=== PATIENT | female | born 1930 | race Caucasian/White ===

== ENCOUNTER 2016-11-07 16:36 | Emergency (ER) | payer MEDICARE ==
[~2016-11-07] VITALS: Ht 144.8 cm; Wt 51.3 kg
[~2016-11-07 16:36] MED LIST: ATOR80TA; AZIT-21 PO; BNZ20T; CLN.1T; CLOP75TA; ESCT10T; GUAI120S36 PO; ISM30TCR; LISI-596 PO; LVT.05T; MTP25TSR; MTP50T; OLME40TA14; PRD20T; RANO500T2
[2016-11-07] MEDS ORDERED: TETANUS,DIPTH,PERTUSS P/F (BOOSTRIX) 0.5 ML VIAL IM STA (16:41)
--- NOTE | 2016-11-07 16:49 | ED Fall/Injury ---
General Chief Complaint: Trauma-Non Activation Stated Complaint: FALL/HEAD PAIN Source: patient, family, EMS Exam Limitations: no limitations (KILO DIAS MD) History of Present Illness Time seen by provider: 16:40 Initial Comments Here with report of tripping and falling to the ground and hitting her right forehead and cheek area. No loss of consciousness. Trip was mechanical. Also hit her left knee but denies any significant pain there. She is not on blood thinners. Tetanus is just out of date. Denies nausea or vomiting. Otherwise acting okay with mild headache. Occurred: just prior to arrival (30 minutes ago) Severity: moderate Injuries/Pain Location: head, face Context: tripped Loss of Consciousness: no loss of consciousness Associated Symptoms (Fall): No Abdominal Pain, No Chest Pain, Headache, No Nausea/Vomiting, No Shortness of Air, No Vision Changes (KILO DIAS MD) Allergies and Home Medications Allergies Coded Allergies: No Known Drug Allergies (Unverified , 11/07/16) Home Medications Amlodipine Besylate 5 Mg Tablet, 5 MG PO DAILY, #30 Ref 0 Prescribed by: ROMEL DIAZ on 11/07/161949 Constitutional: see HPI, No chills, No fever Eyes: No Symptoms Reported Ears, Nose, Mouth, Throat: no symptoms reported Respiratory: no symptoms reported Cardiovascular: no symptoms reported Gastrointestinal: no symptoms reported Musculoskeletal: see HPI, joint pain Skin: see HPI, lesions Psychiatric/Neurological: Headache, Denies Weakness (KILO DIAS MD) All Other Systems Reviewed Negative Unless Noted: Yes (KILO DIAS MD) Past Bzegdes-Egycbu-Rmkfga Hx Patient Social History Alcohol Use: Denies Use Smoking Status: Never a Smoker (KILO DIAS MD) Surgeries HX Surgeries: Yes (KIDNEY STONE REMOVAL-1982, GALL BLADDER-1975) (KILO DIAS MD) Respiratory Hx Respiratory Disorders: No (KILO DIAS MD) Cardiovascular Hx Cardiac Disorders: Yes (KILO DIAS MD) Neurological Hx Neurological Disorders: Yes (KILO DIAS MD) Reproductive System Hx Reproductive Disorders: No (KILO DIAS MD) Gastrointestinal Hx Gastrointestinal Disorders: Yes (KILO DIAS MD) Musculoskeletal Hx Musculoskeletal Disorders: Yes (KILO DIAS MD) Endocrine Hx Endocrine Disorders: Yes (KILO DIAS MD) HEENT HX ENT Disorders: No (KILO DIAS MD) Psychosocial Hx Psychiatric Problems: No (KILO DIAS MD) Blood Transfusions Hx Blood Disorders: No (KILO DIAS MD) Reviewed Nursing Assessment Reviewed/Agree w Nursing PMH: Yes (KILO DIAS MD) Family Medical History Significant Family History: No Pertinent Family Hx (KILO DIAS MD) Physical Exam Vital Signs Vital Sign - Last 12Hours 11/07/16 16:40 Temp 98.0 Pulse 105 Resp 18 B/P (MAP) 213/113 Pulse Ox 96 O2 Delivery Room Air (ROMEL DIAZ) Vital Signs Capillary Refill : (KILO DIAS MD) General Appearance: WD/WN, no apparent distress HEENT: PERRL/EOMI, pharynx normal Neck: full range of motion, supple, normal inspection Cardiovascular: regular rate, rhythm, no murmur Respiratory: lungs clear, normal breath sounds Gastrointestinal: non tender, soft Back: normal inspection, no CVA tenderness, no vertebral tenderness Extremities: non-tender, normal inspection Neurologic/Psychiatric: alert, oriented x 3 Skin: warm/dry, ecchymosis, other (abrasion 2 x 2 centimeter to right forehead with 1 x 1 cm abrasion to the right cheek. Surrounding ecchymosis noted.) ( KILO DIAS MD) Progress/Results/Core Measures Results/Orders Lab Results Laboratory Tests Test 11/07/16 19:01 Range/Units White Blood Count 4.6 4.3-11.0 10^3/uL Red Blood Count 4.78 4.35-5.85 10^6/uL Hemoglobin 14.6 11.5-16.0 G/DL Hematocrit 43 35-52 % Mean Corpuscular Volume 90 80-99 FL Mean Corpuscular Hemoglobin 31 25-34 PG Mean Corpuscular Hemoglobin Concent 34 32-36 G/DL Red Cell Distribution Width 12.8 10.0-14.5 % Platelet Count 152 130-400 10^3/uL Mean Platelet Volume 9.7 7.4-10.4 FL Neutrophils (%) (Auto) 58 42-75 % Lymphocytes (%) (Auto) 28 12-44 % Monocytes (%) (Auto) 10 0-12 % Eosinophils (%) (Auto) 3 0-10 % Basophils (%) (Auto) 1 0-10 % Neutrophils # (Auto) 2.7 1.8-7.8 X 10^3 Lymphocytes # (Auto) 1.3 1.0-4.0 X 10^3 Monocytes # (Auto) 0.5 0.0-1.0 X 10^3 Eosinophils # (Auto) 0.1 0.0-0.3 10^3/uL Basophils # (Auto) 0.0 0.0-0.1 10^3/uL Sodium Level 138 135-145 MMOL/L Potassium Level 4.6 3.6-5.0 MMOL/L Chloride Level 104 98-107 MMOL/L Carbon Dioxide Level 23 21-32 MMOL/L Anion Gap 11 5-14 MMOL/L Blood Urea Nitrogen 30 H 7-18 MG/DL Creatinine 0.81 0.60-1.30 MG/DL Estimat Glomerular Filtration Rate > 60 BUN/Creatinine Ratio 37 Glucose Level 93 70-105 MG/DL Calcium Level 9.8 8.5-10.1 MG/DL Total Bilirubin 0.9 0.1-1.0 MG/DL Aspartate Amino Transf (AST/SGOT) 24 5-34 U/L Alanine Aminotransferase (ALT/SGPT) 15 0-55 U/L Alkaline Phosphatase 61 40-136 U/L Total Protein 7.7 6.4-8.2 GM/DL Albumin 4.0 3.2-4.5 GM/DL (ROMEL DIAZ) My Orders Orders - ROMEL DIAZ Ct Head/Cervical Spine Wo (11/07/16 16:41) Dipht,Pertuss(Acell),Tet Adult (Boostrix (11/07/16 16:41) Fentanyl Injection (Sublimaze Injection (11/07/16 16:55) Ct Chest Wo (11/07/16 17:04) Cbc With Automated Diff (11/07/16 18:42) Comprehensive Metabolic Panel (11/07/16 18:42) Amlodipine Tablet (Norvasc Tablet) (11/07/16 18:45) Amlodipine Tablet (Norvasc Tablet) (11/07/16 20:15) (ROMEL DIAZ) Medications Given in ED Current Medications Medications Dose Ordered Sig/Dylan Route Start Time Stop Time Status Last Admin Dose Admin Amlodipine Besylate 5 mg ONCE ONCE PO 11/07/16 18:45 11/07/16 18:46 DC 11/07/16 18:47 5 MG Amlodipine Besylate 5 mg ONCE ONCE PO 11/07/16 20:15 11/07/16 20:16 DC 11/07/16 20:21 5 MG (ROMEL DIAZ) Vital Signs/I&O Vital Sign - Last 12Hours 11/07/16 16:40 Temp 98.0 Pulse 105 Resp 18 B/P (MAP) 213/113 Pulse Ox 96 O2 Delivery Room Air (ROMEL DIAZ) Progress Note : Progress Note Seen and evaluated with ROSSY Naylor. CT head and neck ordered. Tetanus updated. Monitor patient. (KILO DIAS MD) Diagnostic Imaging Diagonstic Imaging: CT Plain Films/CT/US/NM/MRI: c-spine, head Comments FINDINGS: Large round calcification is again identified associated with the calvarium overlying the left frontal lobe, medially. This is not significantly changed since 2008. This is felt to relate to a calcified meningioma. Additional calcification is seen along the interhemispheric falx on the right overlying the right frontal lobe, which is also stable from the prior examination. Metallic density is noted within the region of the suprasellar cistern. 1.5 cm hypodensity within the left basal ganglia is again identified, appearing similar to the prior examination. No intracranial hemorrhage. No additional new intracranial mass. Rightward shift of the anterior interhemispheric falx is again identified, superiorly, secondary to the large calcified meningioma. However, this appears unchanged since 2008. Additionally, there is no evidence of adjacent edema. No definite CT evidence of an acute ischemic infarction. The globes are intact. Soft tissue swelling involving the right frontal scalp. The visualized paranasal sinuses are clear. The calvarium is intact. Straightening of the normal cervical lordosis. Alignment of the atlantooccipital joint is well maintained. No significant anterolisthesis or retrolisthesis. Besides endplate degenerative changes, vertebral body heights are well-maintained. Moderate disc space height loss at C3/C4, C5/C6, C6/C7, C7/ T1 and T1/T2. No acute fracture or dislocation. No destructive osseous process. Scattered facet joint degenerative changes and uncovertebral joint hypertrophy are noted. There is resulting multilevel mild bilateral neuroforaminal stenosis. No severe neuroforaminal stenosis. Prominent disc bulge/protrusion at C4/C5. Scattered vascular calcifications. Pulmonary nodule seen within the left upper lobe. Opacification of the visualized right upper lung is noted. IMPRESSION: 1. No acute intracranial abnormality. 2. No acute osseous abnormality within the cervical spine with multilevel degenerative changes, as above. 3. Multiple left-sided pulmonary nodules with opacification of the right lung apex. Recommend referencing the report from the CT of the chest from same day for complete findings within the chest, itself. 4. Large left frontal calcified meningioma with associated mass effect, not significantly changed since 2008. 5. Additional findings as above. Dictated on workstation # [id number] Reviewed: Reviewed by Me (radiology report reviewed by me.) Diagonstic Imaging: CT Plain Films/CT/US/NM/MRI: chest Comments FINDINGS: Bilateral breast masses are again identified. These appear to have slightly increased in size since the prior examination. Additionally, extensive right axillary adenopathy is also identified. Scattered vascular calcifications without aneurysmal dilatation of the thoracic aorta. Large right pleural effusion is identified. This is associated with near-complete collapse of the right lung, though portions of the right upper lobe remain aerated. Innumerable pulmonary nodules are identified throughout the lungs, bilaterally. These appear slightly more prominent. In particular, the pulmonary nodule within the lingula did measure 0.9 cm and now measures 1.2 cm. No left-sided pleural effusion. No pneumothorax. No pericardial effusion. Lobulated contour of the liver is noted. Hypodensity within the right hepatic lobe is again identified, appearing similar to the prior examination. Recanalization of the umbilical vein is noted. Otherwise, minimally visualized upper abdomen is unremarkable. Osseous structures demonstrate multiple mixed sclerotic and lucent lesions throughout the spine and ribs. No acute osseous abnormality identified. IMPRESSION: 1. Findings consistent with extensive metastatic disease, having slightly progressed since the prior examination. 2. Large right-sided pleural effusion with near complete collapse of the right lung. 3. Additional findings as above. Dictated on workstation # [id number] Reviewed: Reviewed by Me (radiology report reviewed by me.) (ROMEL DIAZ) Departure Communication Progress Notes patient seen and evaluated with Dr. Dias. CT head/neck obtained showing opacification of the rt lung apex; therefore, CT chest was obtained. Findings are of metastatic breast cancer (increased in size since CT angio chest from 2015) and a calcified meningioma (similar to previous CT head from 2008). Patient voices that she is aware of these findings. Patient states she opted to "live her life" instead of have treatment for the breast cancer. Patient reports she is only SOA with strenuous activity, but is able to do the activities she wishes to do. Patient advised to f/u with Dr. Marquez and Dr. Marsh for discussion of possible need for palliative thoracentesis, hospice, recheck of BP, etc... Patient states she was given a Rx for pain medication previously, but denies need at this time. Patient is noted to have continued BP of 190/100 mmHg after 5 mg of amlodipine in the ED. Amlodipine repeated x1. Patient to f/u with Dr. Marquez for this. All return precautions were discussed with the patient and family. all voice understanding and agree with the treatment plan. (ROMEL DIAZ) Impression Impression: Primary Impression: Minor head injury without loss of consciousness Qualified Codes: S09.90XA - Unspecified injury of head, initial encounter Additional Impressions: Abrasion of face Qualified Codes: S00.81XA - Abrasion of other part of head, initial encounter Hypertension Qualified Codes: I10 - Essential (primary) hypertension History of meningioma of the brain Hx of malignant neoplasm of female breast Pleural effusion on right Disposition: 01 HOME, SELF-CARE Condition: Improved Departure-Patient Inst. Referrals: LAURA MARSH DANIEL J MD (PCP/Family) Primary Care Physician Patient Instructions: Minor Head Injury (DC), Pleural Effusion (DC), Skin Abrasions (DC) Add. Discharge Instructions: All discharge instructions reviewed with patient and/or family. Voiced understanding. Medications as instructed. Tylenol Extra Strength over-the- counter as directed for pain. Ice pack for 20 minute intervals as needed for pain. Tomorrow morning you may begin showering with antibacterial soap. Apply triple antibiotic ointment twice daily to the abrasions for 3 days. Follow-up with Dr. Marsh and Dr. Marquez as an outpatient in the next 7 days for recheck and discussion of possible need for draining of the rt lung fluid. Return to the emergency department immediately for worsened pain, changes in behavior, headache, dizziness, changes in vision, slurred speech, numbness, weakness, neck pain, back pain, shortness of air, chest pain, vomiting, or any other concerns. Scripts Amlodipine Besylate (Amlodipine Besylate) 5 Mg Tablet 5 MG PO DAILY, #30 TAB 0 Refills Prov: ROMEL DIAZ 11/07/16 Copy Copies To 1: LAURA MARSH DO Copies To 2: IVELISSE MARQUEZ MD, TIMOTHY D MD Nov 07, 2016 16:49 ROMEL DIAZ Nov 07, 2016 19:12
[2016-11-07] MEDS ORDERED: fentaNYL INJECTION 100 MCG/2 ML AMP IVP STA (16:55)
--- NOTE | 2016-11-07 17:28 | Diagnostic Imaging Report ---
PROCEDURE: CT head and CT cervical spine without contrast. TECHNIQUE: Multiple contiguous axial images were obtained through the brain and cervical spine without the use of intravenous contrast. Sagittal and coronal reformations through the cervical spine were then performed. INDICATION: Fall, laceration. COMPARISON: January 26, 2009. FINDINGS: Large round calcification is again identified associated with the calvarium overlying the left frontal lobe, medially. This is not significantly changed since 2008. This is felt to relate to a calcified meningioma. Additional calcification is seen along the interhemispheric falx on the right overlying the right frontal lobe, which is also stable from the prior examination. Metallic density is noted within the region of the suprasellar cistern. 1.5 cm hypodensity within the left basal ganglia is again identified, appearing similar to the prior examination. No intracranial hemorrhage. No additional new intracranial mass. Rightward shift of the anterior interhemispheric falx is again identified, superiorly, secondary to the large calcified meningioma. However, this appears unchanged since 2008. Additionally, there is no evidence of adjacent edema. No definite CT evidence of an acute ischemic infarction. The globes are intact. Soft tissue swelling involving the right frontal scalp. The visualized paranasal sinuses are clear. The calvarium is intact. Straightening of the normal cervical lordosis. Alignment of the atlantooccipital joint is well maintained. No significant anterolisthesis or retrolisthesis. Besides endplate degenerative changes, vertebral body heights are well-maintained. Moderate disc space height loss at C3/C4, C5/C6, C6/C7, C7/T1 and T1/T2. No acute fracture or dislocation. No destructive osseous process. Scattered facet joint degenerative changes and uncovertebral joint hypertrophy are noted. There is resulting multilevel mild bilateral neuroforaminal stenosis. No severe neuroforaminal stenosis. Prominent disc bulge/protrusion at C4/C5. Scattered vascular calcifications. Pulmonary nodule seen within the left upper lobe. Opacification of the visualized right upper lung is noted. IMPRESSION: 1. No acute intracranial abnormality. 2. No acute osseous abnormality within the cervical spine with multilevel degenerative changes, as above. 3. Multiple left-sided pulmonary nodules with opacification of the right lung apex. Recommend referencing the report from the CT of the chest from same day for complete findings within the chest, itself. 4. Large left frontal calcified meningioma with associated mass effect, not significantly changed since 2008. 5. Additional findings as above. Dictated by: Dictated on workstation # [id number]
--- NOTE | 2016-11-07 17:50 | Diagnostic Imaging Report ---
PROCEDURE: CT chest without contrast. TECHNIQUE: Multiple contiguous axial images were obtained through the chest without the use of intravenous contrast. INDICATION: Fall, laceration. COMPARISON: February 12, 2016. FINDINGS: Bilateral breast masses are again identified. These appear to have slightly increased in size since the prior examination. Additionally, extensive right axillary adenopathy is also identified. Scattered vascular calcifications without aneurysmal dilatation of the thoracic aorta. Large right pleural effusion is identified. This is associated with near-complete collapse of the right lung, though portions of the right upper lobe remain aerated. Innumerable pulmonary nodules are identified throughout the lungs, bilaterally. These appear slightly more prominent. In particular, the pulmonary nodule within the lingula did measure 0.9 cm and now measures 1.2 cm. No left-sided pleural effusion. No pneumothorax. No pericardial effusion. Lobulated contour of the liver is noted. Hypodensity within the right hepatic lobe is again identified, appearing similar to the prior examination. Recanalization of the umbilical vein is noted. Otherwise, minimally visualized upper abdomen is unremarkable. Osseous structures demonstrate multiple mixed sclerotic and lucent lesions throughout the spine and ribs. No acute osseous abnormality identified. IMPRESSION: 1. Findings consistent with extensive metastatic disease, having slightly progressed since the prior examination. 2. Large right-sided pleural effusion with near complete collapse of the right lung. 3. Additional findings as above. Dictated by: Dictated on workstation # [id number]
[2016-11-07] MEDS ORDERED: amLODIPine 5 MG (NORVASC) TAB PO ONE ×2 (18:45→20:15)
[2016-11-07 19:09] LABS: BASOPHILS % (AUTO) 1 % (0-10); EOSINOPHILS # (AUTO) 0.1 10^3/uL (0.0-0.3); EOSINOPHILS % (AUTO) 3 % (0-10); LYMPHOCYTES # (AUTO) 1.3 X 10^3 (1.0-4.0); LYMPHOCYTES % (AUTO) 28 % (12-44); MEAN CORPUSCULAR HEMOGLOBIN 31 PG (25-34); MEAN CORPUSCULAR HGB CONC 34 G/DL (32-36); MEAN CORPUSCULAR VOLUME 90 FL (80-99); MEAN PLATELET VOLUME 9.7 FL (7.4-10.4); MONOCYTES # (AUTO) 0.5 X 10^3 (0.0-1.0); MONOCYTES % (AUTO) 10 % (0-12); NEUTROPHILS # (AUTO) 2.7 X 10^3 (1.8-7.8); NEUTROPHILS % (AUTO) 58 % (42-75); PLATELET COUNT 152 10^3/uL (130-400); RED BLOOD COUNT 4.78 10^6/uL (4.35-5.85); RED CELL DISTRIBUTION WIDTH 12.8 % (10.0-14.5); WHITE BLOOD COUNT 4.6 10^3/uL (4.3-11.0)
[2016-11-07 19:36] LABS: ALANINE AMINOTRANSFERASE 15 U/L (0-55); ANION GAP 11 MMOL/L (5-14); ASPARTATE AMINO TRANSFERASE 24 U/L (5-34); BILIRUBIN,TOTAL 0.9 MG/DL (0.1-1.0); BLOOD UREA NITROGEN 30 MG/DL (7-18); BUN/CREATININE RATIO 37; CALCIUM 9.8 MG/DL (8.5-10.1); CARBON DIOXIDE 23 MMOL/L (21-32); CHLORIDE 104 MMOL/L (98-107); CREATININE SERUM 0.81 MG/DL (0.60-1.30); GFR ESTIMATED > 60; GLUCOSE 93 MG/DL (70-105); POTASSIUM 4.6 MMOL/L (3.6-5.0); SODIUM 138 MMOL/L (135-145); TOTAL PROTEIN 7.7 GM/DL (6.4-8.2)
[2016-11-07] MEDS ORDERED: AMLO5TAB2 PO ×2 (19:50)
[2016-11-07 21:02] VITALS: BP 194/102
--- OUTSIDE RECORDS SUMMARY | 2016-11-09 12:09 | XMS REPORT | Continuity of Care Document ---
Author Author [facility] Organization [facility] Address Unknown Phone Unavailable Allergies Active Description Code Type Severity Reaction Onset Reported/Identified Relationship to Patient Clinical Status Yes VERN Inhibitors [id number] Drug Allergy Mild COUGH, RINGING 01/26/2009 Yes Beta-Blockers (Beta-Adrenergic Bloc [id number] Drug Allergy Mild 2ND DEGREE HEAR 01/26/2009 Yes Penicillins [id number] Drug Allergy Mild RASH 01/26/2009 Medications Problems Date Dx Coded Attending Type Code Diagnosis Diagnosed By 09/01/2014 YOANDY DANIELS MD Ot 401.9 HYPERTENSION NOS 09/01/2014 YOANDY DANIELS MD Ot 466.0 ACUTE BRONCHITIS 09/01/2014 YOANDY DANIELS MD Ot 786.2 COUGH 01/19/2016 Ot 727.51 POPLITEAL SYNOVIAL CYST 01/19/2016 Ot 729.5 PAIN IN LIMB 01/20/2016 IVELISSE MARQUEZ MD Ot R06.02 SHORTNESS OF BREATH 02/05/2016 Ot 727.51 POPLITEAL SYNOVIAL CYST 02/05/2016 Ot 729.5 PAIN IN LIMB 02/05/2016 IVELISSE MARQUEZ MD Ot R06.02 SHORTNESS OF BREATH 02/12/2016 IVELISSE MARQUEZ MD Ot R06.02 SHORTNESS OF BREATH 02/13/2016 LAURA FREEMAN DO Ot J90 PLEURAL EFFUSION, 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 02/13/2016 LAURA FREEMAN DO Ot K76.9 LIVER DISEASE, UNSPECIFIED 02/13/2016 LAURA FREEMAN DO Ot N63 UNSPECIFIED LUMP IN BREAST 02/13/2016 LAURA FREEMAN DO Ot R22.2 LOCALIZED SWELLING, MASS AND LUMP, TRUNK 02/13/2016 LAURA FREEMAN DO Ot R91.8 OTHER NONSPECIFIC ABNORMAL FINDING OF CASS 02/16/2016 LAURA FREEMAN DO, Ot J90 PLEURAL EFFUSION, 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 02/16/2016 LAURA FREEMAN DO Ot K76.9 LIVER DISEASE, UNSPECIFIED 02/16/2016 LAURA FREEMAN DO Ot N63 UNSPECIFIED LUMP IN BREAST 02/16/2016 LAURA FREEMAN DO Ot R22.2 LOCALIZED SWELLING, MASS AND LUMP, TRUNK 02/16/2016 LAURA FREEMAN DO Ot R91.8 OTHER NONSPECIFIC ABNORMAL FINDING OF CASS 02/19/2016 ALMA MIR, IVELISSE Partida Ot R06.02 SHORTNESS OF BREATH 02/26/2016 LAURA FREEMAN DO Ot J90 PLEURAL EFFUSION, 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 02/26/2016 LAURA FREEMAN DO Ot R06.00 DYSPNEA, UNSPECIFIED 03/04/2016 LAURA FREEMAN DO Ot J90 PLEURAL EFFUSION, 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 03/04/2016 LAURA FREEMAN DO Ot K76.9 LIVER DISEASE, UNSPECIFIED 03/04/2016 LAURA FREEMAN DO Ot N63 UNSPECIFIED LUMP IN BREAST 03/04/2016 LAURA FREEMAN DO Ot R22.2 LOCALIZED SWELLING, MASS AND LUMP, TRUNK 03/04/2016 LAURA FREEMAN DO Ot R91.8 OTHER NONSPECIFIC ABNORMAL FINDING OF CASS 03/11/2016 LAURA FREEMAN DO Ot J90 PLEURAL EFFUSION, 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 03/11/2016 LAURA FREEMAN DO Ot K76.9 LIVER DISEASE, UNSPECIFIED 03/11/2016 LAURA FREEMAN DO Ot N63 UNSPECIFIED LUMP IN BREAST 03/11/2016 LAURA FREEMAN DO Ot R22.2 LOCALIZED SWELLING, MASS AND LUMP, TRUNK 03/11/2016 LAURA FREEMAN DO Ot R91.8 OTHER NONSPECIFIC ABNORMAL FINDING OF CASS Procedures Results Encounters ACCT No. Visit Date/Time Discharge Status Pt. Type Provider Facility Loc./Unit Complaint [id number] 09/01/2014 17:15:00 2014 19:26:00 DIS Emergency JEREMIAH MIR, YOANDY Velez [facility] ER FEVER,COUGH [id number] 02/12/2016 14:26:00 ACT Outpatient LAURA FREEMAN DO [facility] RAD J90,R06.00 [id number] 02/05/2016 08:51:00 ACT Outpatient LAURA FREEMAN DO [facility] CARD DYSPNEA AND RESPIRATORY ABNORMALITIES [id number] 01/19/2016 07:02:00 ACT Outpatient ALMA IMR, IVELISSE Partida [facility] RAD SOB [id number] 02/19/2011 10:14:00 Document Registration
== END 2016-11-07 21:02 | disposition home or self-care (01) ==
LOC: EDUNIT# 16:36 → ER 16:37
DX: S00.81XA Abrasion of other part of head, initial encounter; Z86.39 Personal history of other endocrine, nutritional and metabolic disease; I10 Essential (primary) hypertension; Z86.79 Personal history of other diseases of the circulatory system; Z85.3 Personal history of malignant neoplasm of breast; Z87.39 Personal history of other diseases of the musculoskeletal system and connective tissue; J90 Pleural effusion, not elsewhere classified; S09.90XA Unspecified injury of head, initial encounter; W01.0XXA Fall on same level from slipping, tripping and stumbling without subsequent striking against object, initial encounter; Z86.011 Personal history of benign neoplasm of the brain; Z87.19 Personal history of other diseases of the digestive system
CPT/HCPCS: 36415; 70450; 71250; 72125; 80053; 85025; 90471; 90715; 96374

== ENCOUNTER 2016-11-09 11:38 | Observation (INO) | payer MEDICARE ==
[~2016-11-09] VITALS: Ht 144.8 cm; Wt 51.7 kg
[2016-11-09] VITALS (9 sets, daily range): BP systolic 129–193; BP diastolic 76–99
[~2016-11-09 11:38] MED LIST changes: +AMLO5TAB2 PO
--- NOTE | 2016-11-09 13:02 | Diagnostic Imaging Report ---
CLINICAL INDICATION: Patient is status post thoracentesis. EXAM: Chest x-ray, PA and lateral views. COMPARISON: Chest x-ray dated 02/05/2016. FINDINGS: There is a moderate sized right pleural effusion and a large associated pneumothorax. There is consolidation/collapse of the right lower lobe and middle lobe regions as well as partial atelectasis of the right upper lobe. Again seen are patchy areas of opacities involving the left midlung field and left lung base. The cardiac silhouette is within normal limits. The pulmonary vasculature is within normal limits as visualized. There are hypertrophic spurs seen throughout the spine. Surgical sutures are seen involving the anterior abdominal region again noted. IMPRESSION: 1. Interval development of a moderate to large sized right hydropneumothorax with associated collapse of the right lower lobe and middle lobe region as well as partial atelectasis in the right upper lobe. 2. Again seen are patchy opacities in the left midlung field and left lung base which may represent lung infiltrates or chronic lung disease changes. 3. The remainder of this exam shows no significant interval change compared to the prior study of comparison. 4. The results of this report were discussed with Dr. Jaxon Marsh via the telephone on 11/09/2016 at 1250 hours. Dictated by: Dictated on workstation # [id number]
[2016-11-09 16:25] LABS: BLOOD UREA NITROGEN 28 MG/DL (7-18); BUN/CREATININE RATIO 32; CREATININE SERUM 0.87 MG/DL (0.60-1.30); GFR ESTIMATED > 60
[2016-11-09] MEDS ORDERED: IOHEXOL 350 MG/ML 100 ML (OMNIPAQUE 350) VIAL IV ONE (17:00)
[2016-11-09] MEDS ORDERED: NS 100 ML (IVPB) BAG IV ONE (17:00)
--- NOTE | 2016-11-09 17:37 | Diagnostic Imaging Report ---
PROCEDURE: CT chest with contrast only. TECHNIQUE: Multiple contiguous axial images were obtained through the chest after administration of intravenous contrast. INDICATION: Hydropneumothorax. COMPARISON: Exam compared with study dated 11/07/2016. FINDINGS: There is a large right hydropneumothorax. The right middle and lower lobes are retracted and nearly airless and consolidated. The fluid in the pleural space layers to a depth of 5.2 cm. The partially expanded right lung shows innumerable small nodules. Some nodularity along the parietal pleural surface of the right chest wall. There is irregular masses within the breasts bilaterally presumed neoplastic. The largest right breast mass laterally measures 3.3 cm. An adjacent mass towards the midline in the right measured 2.5 cm. Largest mass in the left breast is upper inner quadrant 1.3 cm. There is pathological appearing adenopathy in the right axilla strongly suggestive of metastatic disease. The largest mass is irregular measuring 2.6 cm. There is innumerable nodules in the left lung measuring 1 cm and less compatible with widespread metastatic disease. The osseous structures showed areas of mixed sclerosis and lucency and likely reflect multifocal bony metastases involving the spine and ribs. There was no pulmonary arterial embolus evident. Given the retraction and consolidation of the right lung, there would be a questionable degree of reexpansion if chest tube placement were to be performed. The degree of right to left shift of the midline structures is unchanged when compared to the prior study when the pleural fluid was present. The consolidation in the right lung also appeared unchanged. The lung masses and bony disease as well as breast and axillary lesions appeared unchanged. There is recanalization of the periumbilical vein typically associated with elevated portal venous pressures. There is a cyst in the right hepatic lobe. The visualized upper abdomen showed no obvious change from priors. IMPRESSION: There is a large right hydropneumothorax following near complete pleural fluid evacuation. The distribution and consolidation of the right lung in its retraction is not substantially changed from the prior and the mass effect with [id number] cardiomediastinal shift is also unchanged. This appearance is often associated with poor response to thoracostomy and pleural air/fluid evacuation and it is unclear how much, if any, right lung reexpansion would occur with that intervention. Widespread pulmonary parenchymal and pleural metastatic disease and likely bony metastases did not appear changed. Multiple breast masses greater right than left and metastatic appearing right axillary adenopathy noted, all unchanged. Dictated by: Dictated on workstation # [id number]
[2016-11-09] MEDS ORDERED: ACETAMINOPHEN 500 MG TAB (TYLENOL) PO PRN (18:45)
--- NOTE | 2016-11-09 18:46 | History & Physicial ---
History of Present Illness History of Present Illness Reason for visit/HPI 86-year-old female initially presented to office on November 08, 2016 with dyspnea. Patient was with known "whiteout" of the right side of her chest from emergency room visit. Patient came to the office for further care and at that time she had them for me she was to see Dr. Marsh on November 09 for possible fluid drainage to the right side of her chest. Patient within the last year was found to have metastatic most likely breast cancer. She has requested no biopsies to be performed to determine the primary. At this point she is being admitted after having fluid drainage earlier today and noted findings by CT of a hydropneumothorax on the right side of her chest. She does report she is breathing a little bit better but due to the findings it was felt best to be placed in the intensive care unit for further observation. Date of Admission Nov 09, 2016 at 14:50 Date Seen by Provider: Nov 09, 2016 Time Seen by Provider: 18:30 I consulted on this patient on 11/09/16 18:41 Attending Physician Jaxon Marsh DO Admitting Physician Sergei Marquez MD Consult Allergies and Home Medications Allergies Coded Allergies: No Known Drug Allergies (Unverified , 11/07/16) Home Medications Amlodipine Besylate 5 Mg Tablet, 5 MG PO DAILY, #30 Ref 0 Prescribed by: ROMEL DIAZ on 11/07/16 1950 Past Ruwpveu-Axewzf-Vwvjml Hx Patient Social History Marrital Status: Alcohol Use: Denies Use Recreational Drug Use: No Smoking Status: Never a Smoker Physical Abuse Screen: No Sexual Abuse: No Recent Foreign Travel: No Contact w/other who traveled: No Recent Hopitalizations: No Recent Infectious Disease Expo: No Immunizations Up To Date Tetanus Booster (TDap): Unknown Surgeries HX Surgeries: Yes (KIDNEY STONE REMOVAL-1982, GALL BLADDER-1975) Respiratory Hx Respiratory Disorders: No Cardiovascular Hx Cardiovascular Disorders: Yes Cardiac Disorders: Aneurysm, Hypertension Neurological Hx Neurological Disorders: Yes Reproductive System Hx Reproductive Disorders: No Gastrointestinal Hx Gastrointestinal Disorders: Yes Musculoskeletal Hx Musculoskeletal Disorders: Yes Musculoskeletal Disorders: Arthritis Endocrine Hx Endocrine Disorders: Yes HEENT HX ENT Disorders: No Psychosocial Hx Psychiatric Problems: No Blood Transfusions Hx Blood Disorders: No Family Medical History Significant Family History: No Pertinent Family Hx Constitutional: see HPI Skin: other (bruising on the right side of her face due to a fall) Physical Exam Vital Signs Vital Sign - Last 12Hours 11/09/16 15:00 Temp 98.8 Pulse 97 Resp 16 B/P (MAP) 161/93 Pulse Ox 97 O2 Delivery Room Air Capillary Refill : General Appearance: Mild Distress Eyes: Bilateral Eye Normal Inspection HEENT: Pharynx Normal Neck: Supple Respiratory: Lungs Clear (but distant on the right) Cardiovascular: Regular Rate, Rhythm Gastrointestinal: Soft Rectal: Deferred Extremity: Normal Capillary Refill Skin: Normal Color, Cool Comments NAME: CHINA CAMPOS [facility] REC#: [id number] PT STATUS: ADM IN : 1930 PHYSICIAN: JAXON MARSH DO ADMIT DATE: 11/09/16/ICU Signed Date of Exam: 11/09/16 CHEST PA/LAT (2 VIEW) CLINICAL INDICATION: Patient is status post thoracentesis. EXAM: Chest x-ray, PA and lateral views. COMPARISON: Chest x-ray dated 02/05/2016. FINDINGS: There is a moderate sized right pleural effusion and a large associated pneumothorax. There is consolidation/collapse of the right lower lobe and middle lobe regions as well as partial atelectasis of the right upper lobe. Again seen are patchy areas of opacities involving the left midlung field and left lung base. The cardiac silhouette is within normal limits. The pulmonary vasculature is within normal limits as visualized. There are hypertrophic spurs seen throughout the spine. Surgical sutures are seen involving the anterior abdominal region again noted. IMPRESSION: 1. Interval development of a moderate to large sized right hydropneumothorax with associated collapse of the right lower lobe and middle lobe region as well as partial atelectasis in the right upper lobe. 2. Again seen are patchy opacities in the left midlung field and left lung base which may represent lung infiltrates or chronic lung disease changes. 3. The remainder of this exam shows no significant interval change compared to the prior study of comparison. 4. The results of this report were discussed with Dr. Jaxon Marsh via the telephone on 11/09/2016 at 1250 hours. Dictated by: Dictated on workstation # [id number] Dict: 11/09/16 1243 Trans: 07/11/17 1812 Interpreted by: TACHO SHER MD Electronically signed by: TACHO SHER MD 11/09/161811 NAME: CHINA CAMPOS [facility] REC#: [id number] PT STATUS: ADM IN : 1930 PHYSICIAN: JAXON MARSH DO ADMIT DATE: 11/09/16/ICU Draft Date of Exam:11/09/16 CT CHEST W PROCEDURE: CT chest with contrast only. TECHNIQUE: Multiple contiguous axial images were obtained through the chest after administration of intravenous contrast. INDICATION: Hydropneumothorax. COMPARISON: Exam compared with study dated 11/07/2016. FINDINGS: There is a large right hydropneumothorax. The right middle and lower lobes are retracted and nearly airless and consolidated. The fluid in the pleural space layers to a depth of 5.2 cm. The partially expanded right lung shows innumerable small nodules. Some nodularity along the parietal pleural surface of the right chest wall. There is irregular masses within the breasts bilaterally presumed neoplastic. The largest right breast mass laterally measures 3.3 cm. An adjacent mass towards the midline in the right measured 2.5 cm. Largest mass in the left breast is upper inner quadrant 1.3 cm. There is pathological appearing adenopathy in the right axilla strongly suggestive of metastatic disease. The largest mass is irregular measuring 2.6 cm. There is innumerable nodules in the left lung measuring 1 cm and less compatible with widespread metastatic disease. The osseous structures showed areas of mixed sclerosis and lucency and likely reflect multifocal bony metastases involving the spine and ribs. There was no pulmonary arterial embolus evident. Given the retraction and consolidation of the right lung, there would be a questionable degree of reexpansion if chest tube placement were to be performed. The degree of right to left shift of the midline structures is unchanged when compared to the prior study when the pleural fluid was present. The consolidation in the right lung also appeared unchanged. The lung masses and bony disease as well as breast and axillary lesions appeared unchanged. There is recanalization of the periumbilical vein typically associated with elevated portal venous pressures. There is a cyst in the right hepatic lobe. The visualized upper abdomen showed no obvious change from priors. IMPRESSION: There is a large right hydropneumothorax following near complete pleural fluid evacuation. The distribution and consolidation of the right lung in its retraction is not substantially changed from the prior and the mass effect with ogzev-oi-jsbv cardiomediastinal shift is also unchanged. This appearance is often associated with poor response to thoracostomy and pleural air/fluid evacuation and it is unclear how much, if any, right lung reexpansion would occur with that intervention. Widespread pulmonary parenchymal and pleural metastatic disease and likely bony metastases did not appear changed. Multiple breast masses greater right than left and metastatic appearing right axillary adenopathy noted, all unchanged. Dictated on workstation # [id number] Dict: 11/09/16 1715 Trans: 11/09/16 1736 [id number] Interpreted by: CANDY SCHULTZ Electronically signed by: Assessment/Plan Assessment and Plan 1. Hydropneumothorax on right -patient admitted to intensive care unit for monitoring of her respiratory status -Pulmonology Dr. Marsh consulted 2. Dyspnea secondary to number 1 -Chest x-ray scheduled for the morning -Incentive spirometry 3. Metastatic cancer most likely due to breastno biopsies performed -She is DO NOT RESUSCITATE 4. History of hypertension -Monitor blood pressure and treat as indicated Problems: Admission Diagnosis 1. Hydropneumothorax on right 2. Dyspnea secondary to number 1 3. Metastatic cancer most likely due to breastno biopsies performed 4. History of hypertension Clinical Quality Measures DVT/VTE Risk/Contraindication: Risk Factor Score Per Nursin RFS Level Per Nursing on Admit: 2=Moderate SERGEI MARQUEZ MD Nov 09, 2016 18:46
--- OUTSIDE RECORDS SUMMARY | 2016-11-09 21:30 | XMS REPORT | Continuity of Care Document ---
Author Author [facility] Organization [facility] Address Unknown Phone Unavailable Allergies Active Description Code Type Severity Reaction Onset Reported/Identified Relationship to Patient Clinical Status Yes VERN Inhibitors [id number] Drug Allergy Mild COUGH, RINGING 01/26/2009 Yes Beta-Blockers (Beta-Adrenergic Bloc [id number] Drug Allergy Mild 2ND DEGREE HEAR 01/26/2009 Yes Penicillins [id number] Drug Allergy Mild RASH 01/26/2009 Medications Problems [...] Status Pt. Type Provider Facility Loc./Unit Complaint [id number] 09/01/2014 17:15:00 2014 19:26:00 DIS Emergency JEREMIAH MIR, YOANDY Velez [facility] ER FEVER,COUGH [id number] 02/12/2016 14:26:00 ACT Outpatient LAURA FREEMAN DO [facility] RAD J90,R06.00 [id number] 02/05/2016 08:51:00 ACT Outpatient LAURA FREEMAN DO [facility] CARD DYSPNEA AND RESPIRATORY ABNORMALITIES [id number] 01/19/2016 07:02:00 ACT Outpatient ALMA MIR, IVELISSE Partida [facility] RAD SOB [id number] 02/19/2011 10:14:00 Document Registration
[2016-11-10] VITALS (9 sets, daily range): BP systolic 63–169; BP diastolic 79–97
[2016-11-10 04:44] LABS: BASOPHILS # (AUTO) 0.1 10^3/uL (0.0-0.1); BASOPHILS % (AUTO) 1 % (0-10); EOSINOPHILS # (AUTO) 0.1 10^3/uL (0.0-0.3); EOSINOPHILS % (AUTO) 4 % (0-10); LYMPHOCYTES # (AUTO) 1.3 X 10^3 (1.0-4.0); LYMPHOCYTES % (AUTO) 34 % (12-44); MEAN CORPUSCULAR HEMOGLOBIN 30 PG (25-34); MEAN CORPUSCULAR HGB CONC 34 G/DL (32-36); MEAN CORPUSCULAR VOLUME 90 FL (80-99); MEAN PLATELET VOLUME 10.3 FL (7.4-10.4); MONOCYTES # (AUTO) 0.5 X 10^3 (0.0-1.0); MONOCYTES % (AUTO) 12 % (0-12); NEUTROPHILS % (AUTO) 49 % (42-75); PLATELET COUNT 144 10^3/uL (130-400); RED BLOOD COUNT 4.31 10^6/uL (4.35-5.85); RED CELL DISTRIBUTION WIDTH 12.7 % (10.0-14.5)
[2016-11-10 04:58] LABS: ANION GAP 10 MMOL/L (5-14); BLOOD UREA NITROGEN 24 MG/DL (7-18); BUN/CREATININE RATIO 34; CALCIUM 8.9 MG/DL (8.5-10.1); CARBON DIOXIDE 22 MMOL/L (21-32); CHLORIDE 105 MMOL/L (98-107); GFR ESTIMATED > 60; GLUCOSE 101 MG/DL (70-105); MAGNESIUM 2.1 MG/DL (1.8-2.4); PHOSPHORUS 3.7 MG/DL (2.3-4.7); POTASSIUM 3.8 MMOL/L (3.6-5.0); SODIUM 137 MMOL/L (135-145)
--- NOTE | 2016-11-10 08:06 | Discharge Summary ---
Diagnosis/Chief Complaint Date of Admission Nov 09, 2016 at 14:50 Date of Discharge Nov 10, 2016 Discharge Date: Nov 10, 2016 Discharge Time: 08:05 Admission Diagnosis Admission Diagnosis 1. Hydropneumothorax on right -patient admitted to intensive care unit for monitoring of her respiratory status -Pulmonology Dr. Marsh consulted 2. Dyspnea secondary to number 1 -Chest x-ray scheduled for the morning -Incentive spirometry 3. Metastatic cancer most likely due to breastno biopsies performed -She is DO NOT RESUSCITATE 4. History of hypertension -Monitor blood pressure and treat as indicated Discharge Diagnosis 1. Hydropneumothorax on right 2. Dyspnea secondary to number 1 3. Metastatic cancer--Breast suspect as primary 4. History of hypertension Reason Hospital Visit 86-year-old female initially presented to office on November 08, 2016 with dyspnea. Patient was with known "whiteout" of the right side of her chest from emergency room visit. Patient came to the office for further care and at that time she had them for me she was to see Dr. Marsh on November 09 for possible fluid drainage to the right side of her chest. Patient within the last year was found to have metastatic most likely breast cancer. She has requested no biopsies to be performed to determine the primary. At this point she is being admitted after having fluid drainage earlier today and noted findings by CT of a hydropneumothorax on the right side of her chest. She does report she is breathing a little bit better but due to the findings it was felt best to be placed in the intensive care unit for further observation. Discharge Summary Hospital Course Hospital Course patient was admitted to the intensive care unit on November 09 under my service with Dr. Marsh consulting for her pulmonary issues. Patient was found to have lower half whiteout of the left lung. Patient initially had shortness of breath and prior to the admission had undergone thoracentesis to remove 1100 cc of fluid. The chest x-ray did not reveal that much overall improvement. Her clinical symptoms had improved however. She is being observed for further worsening dyspnea or complications of a potential trapped lung. Ultimately clinically she done fairly well throughout the afternoon and evening of November 09 and was felt ready for dismissal in the morning of November 10. Patient has elected for not having aggressive therapy due to what appears to be metastatic breast cancer. She was sent home with hospice to follow up later in the day. All questions were answered that the patient and family had. Labs Procedures None. Consultations Pulmonology-Dr Marsh Discharge Physical Examination Allergies: Coded Allergies: No Known Drug Allergies (Unverified , 11/07/16) Vitals & I&Os General Appearance: No Acute Distress Cardiovascular: Regular Rate Discharge Home Medications Reviewed and agree with Discharge Medication list on patient's Discharge Instruction sheet Instructions to Patient/Family Please see electonic discharge instructions given to patient. Clinical Quality Measures DVT/VTE Risk/Contraindication: Risk Factor Score Per Nursin RFS Level Per Nursing on Admit: 2=Moderate IVELISSE MARQUEZ MD Nov 10, 2016 08:06
--- NOTE | 2016-11-10 08:08 | Discharge Inst-Simple/Standard ---
Discharge Inst-Standard Discharge Medications New, Converted or Re-Newed RX: Other Patient Instructions/Follow Up Plan of Care/Instructions/FU: Dr Marquez in 1 week Niki (hospice) to see you this am at your home Activity as Tolerated: Yes Discharge Diet: Regular Diet [facility] to [facility] as discussed with family Planned Outpatient Orders/Ref. Pneu Vac Indicated: Yes IVELISSE MARQUEZ MD Nov 10, 2016 08:08
--- NOTE | 2016-11-10 08:27 | Diagnostic Imaging Report ---
Portable erect AP chest at 413 hours. INDICATION: Respiratory distress. FINDINGS: The chest exam performed on 11/09/16 noted interval development of a moderate to large right-sided hydropneumothorax with associated collapse of the right middle lobe and partial atelectasis in the right upper lobe. In the interval since the prior exam, both the fluid and the pneumothorax component of the hydropneumothorax has increased. There may now be slight shift of midline to the left. The left lung remains unchanged and the heart is stable. The mediastinum is not widened. IMPRESSION: 1. The appearance of the chest has worsened since the prior study as the hydropneumothorax on the right seen previously has increased. There may be slight shift to the midline developing. 2. These results were called to Dr. Jaxon Marsh at the time of this dictation. In my conversation with Dr. Marsh, he stated that the patient had NO chest complaints. It may prove worthwhile to obtain a short term (2-4 hour) followup chest exam for continued evaluation. Dictated by: Dictated on workstation # [id number]
--- NOTE | 2016-11-10 11:44 | Pulmonary Consultation ---
History of Present Illness History of Present Illness Date of Consultation 11/10/16 11:35 Time Seen by Provider: 11:35 Date of Admission History of Present Illness 86yo with hx of metastatic breast cancer (pt refused chemotherapy at the time of diagnosis. patient directly admitted from my office yesterday after thoracentesis to observation secondary to post thoracentesis showing pneumothorax. Pt states she feels improved and can breath deeper post thoracentesis. Denies SOB, CP, shoulder pain. Thoracentesis was uncomplicated and 1100 cc of dark yellow fluid was obtained. CXR this AM appears to be slightly worse PTX on the right. I have explained this to patient and family. They understand PTX may get worse and lead to respiratory distress. Pt has already decided to go on hospice. Instead of chest tube patient wants to go home on hospice. SHe has good family support with RNs and pharmacist. Allergies and Home Medications Allergies Coded Allergies: No Known Drug Allergies (Unverified , 11/07/16) Home Medications Amlodipine Besylate 5 Mg Tablet, 5 MG PO DAILY, #30 Ref 0 Prescribed by: ROMEL DIAZ on 11/07/16 1950 Past Fzxkgdd-Hdnbcd-Zkuzrx Hx Patient Social History Alcohol Use: Denies Use Recreational Drug Use: No Smoking Status: Never a Smoker Recent Foreign Travel: No Contact w/Someone Who Travel: No Recent Infectious Disease Expo: No Recent Hopitalizations: No Physical Abuse Screen: No Sexual Abuse: No Immunizations Up To Date Tetanus Booster (TDap): Unknown Surgeries HX Surgeries: Yes (KIDNEY STONE REMOVAL-1982, GALL BLADDER-1975) Respiratory Hx Respiratory Disorders: No Cardiovascular Hx Cardiac Disorders: Yes Cardiac Disorders: Aneurysm, Hypertension Neurological Hx Neurological Disorders: Yes Reproductive System Hx Reproductive Disorders: No Gastrointestinal Hx Gastrointestinal Disorders: Yes Musculoskeletal Hx Musculoskeletal Disorders: Yes Musculoskeletal Disorders: Arthritis Endocrine Hx Endocrine Disorders: Yes HEENT HX ENT Disorders: No Psychosocial Hx Psychiatric Problems: No Blood Transfusions Hx Blood Disorders: No Family Medical History Significant Family History: No Pertinent Family Hx Review of Systems Time Seen by Provider: 11:50 Constitutional: Weakness, No: Chills, Fever, Malaise, Other, Sweats ENT: No: Ear discharge, Ear pain, Mouth pain, Mouth swelling, Nose congestion, Nose discharge, Nose pain, Other, Throat pain, Throat swelling Respiratory: No: Cough, Dry, Hemoptysis, Other, Pleuritic Pain, SOB with excertion, Shortness of breath, Sputum, Wheezing, Wheezing Cardiovascular: No: Chest Pain, Edema, Lt Headedness, Orthopnea, Other, Palpitations, Paroxysmal Noc. Dyspnea Gastrointestinal: No: Abdominal Pain, Constipation, Diarrhea, Hematochezia, Melena, Nausea, Other, Vomiting Neurological: Incoordination, Weakness, No: Change in speech, Confusion, Numbness, Other, Seizures Exam Exam Vital Signs Date Time Temp Pulse Resp B/P (MAP) Pulse Ox O2 Delivery O2 Flow Rate FiO2 11/10/16 09:06 98 17 153/84 96 Room Air 11/10/16 08:50 98.7 98 17 153/84 98 Nasal Cannula 2.00 11/10/16 08:18 96 Nasal Cannula 2.00 11/10/16 08:00 96 Nasal Cannula 2.00 11/10/16 07:00 96 11/10/16 07:00 88 22 132/79 99 Nasal Cannula 2.00 11/10/16 06:00 87 15 145/86 100 Nasal Cannula 2.00 11/10/16 05:00 80 20 164/90 99 Nasal Cannula 2.00 11/10/16 04:00 98.7 Nasal Cannula 2.00 11/10/16 04:00 98 Nasal Cannula 2.00 11/10/16 04:00 85 20 157/81 99 Nasal Cannula 2.00 11/10/16 03:00 80 19 63/86 99 Nasal Cannula 2.00 11/10/16 02:00 85 26 169/97 99 Nasal Cannula 2.00 11/10/16 01:00 87 20 154/84 99 Nasal Cannula 2.00 11/10/16 01:00 84 11/10/16 00:00 96 Nasal Cannula 2.00 11/10/16 00:00 98.0 Nasal Cannula 2.00 11/09/16 23:00 90 20 141/81 99 Nasal Cannula 2.00 11/09/16 22:00 93 28 146/92 98 Nasal Cannula 2.00 11/09/16 21:00 95 16 133/76 96 Nasal Cannula 2.00 11/09/16 21:00 Nasal Cannula 2.00 11/09/16 20:00 98.2 Room Air 11/09/16 20:00 96 13 129/78 96 Room Air 11/09/16 20:00 96 Room Air 11/09/16 19:00 96 14 152/82 96 Room Air 11/09/16 19:00 97 11/09/16 18:00 94 15 156/81 96 Room Air 11/09/16 17:00 99 14 193/99 97 Room Air 11/09/16 16:00 97 24 146/88 97 Room Air 11/09/16 15:00 98.8 97 16 161/93 97 Room Air 11/09/16 15:00 Room Air I & O 11/10/16 07:00 Intake Total 1450 ml Output Total 0 ml Balance 1450 ml General Appearance: No Apparent Distress, WD/WN HEENT: Pharynx Normal Neck: Supple Respiratory: Lungs Clear (but distant on the right) Cardiovascular: Regular Rate, Rhythm Extremity: Normal Capillary Refill Skin: Normal Color, Cool Results Lab Laboratory Tests 11/09/16 15:51 11/10/16 03:42 Assessment/Plan Assessment/Plan Pleural effusion s/p outpatient thoracentesis - Pt states she is less SOB and can breath deeper post thoracentesis PTX vs trapped lung vs combination of both -CXR does appear worse today -Chest tube - pt refuses and wants to go home on hospice Metastatic breast cancer -refused treatment upon dx I discussed with patient, family, Dr. Del Rosario and director of home care hospice. Will follow patients wishes and consult hospice. 255 120 min was spent with patient, medical team, Dr. Del Rosario and Hospice. Clinical Quality Measures DVT/VTE Risk/Contraindication: Risk Factor Score Per Nursin RFS Level Per Nursing on Admit: 2=Moderate LAURA FREEMAN DO Nov 10, 2016 11:44
--- OUTSIDE RECORDS SUMMARY | 2016-11-12 09:23 | XMS REPORT | Continuity of Care Document ---
Author Author [facility] Organization [facility] Address Unknown Phone Unavailable Allergies Active Description Code Type Severity Reaction Onset Reported/Identified Relationship to Patient Clinical Status Yes VERN Inhibitors [id number] Drug Allergy Mild COUGH, RINGING 01/26/2009 Yes Beta-Blockers (Beta-Adrenergic Bloc [id number] Drug Allergy Mild 2ND DEGREE HEAR 01/26/2009 Yes Penicillins [id number] Drug Allergy Mild RASH 01/26/2009 Yes No Known Drug Allergies [id number] Drug Allergy Unknown N/ A 11/07/2016 Medications Problems Date Dx Coded Attending Type [...] R06.02 SHORTNESS OF BREATH 02/13/2016 LAURA FREEMAN DO, Ot J90 PLEURAL EFFUSION, 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 02/13/2016 LAURA FREEMAN DO Ot K76.9 LIVER DISEASE, UNSPECIFIED 02/13/2016 LAURA FREEMAN DO Ot N63 UNSPECIFIED LUMP IN BREAST 02/13/2016 LAURA FREEMAN DO Ot R22.2 LOCALIZED SWELLING, MASS AND LUMP, TRUNK 02/13/2016 LAURA FREEMAN DO Ot R91.8 OTHER NONSPECIFIC ABNORMAL FINDING OF CASS 02/16/2016 PETE DO, LAURA M Ot J90 PLEURAL EFFUSION, 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 02/16/2016 LAURA FREEMAN DO M Ot K76.9 LIVER DISEASE, UNSPECIFIED 02/16/2016 LAURA FREEMAN DO M Ot N63 UNSPECIFIED LUMP IN BREAST 02/16/2016 ALNO FREEMAN DOSON M Ot R22.2 LOCALIZED SWELLING, MASS AND LUMP, TRUNK 02/16/2016 ALON FREEMAN DOSON M Ot R91.8 OTHER NONSPECIFIC ABNORMAL FINDING OF CASS 02/19/2016 IVELISSE MARQUEZ MD Ot R06.02 SHORTNESS OF BREATH 02/26/2016 LAURA FREEMAN DO M Ot J90 PLEURAL EFFUSION, 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 02/26/2016 LAURA FREEMAN DO M Ot R06.00 DYSPNEA, UNSPECIFIED 03/04/2016 PETE DOLAURA M Ot J90 PLEURAL EFFUSION, 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 03/04/2016 LAURA FREEMAN DO M Ot K76.9 LIVER DISEASE, UNSPECIFIED 03/04/2016 LAURA FREEMAN DO M Ot N63 UNSPECIFIED LUMP IN BREAST 03/04/2016 ALON FREEMAN DOSON M Ot R22.2 LOCALIZED SWELLING, MASS AND LUMP, TRUNK 03/04/2016 ALON FREEMAN DOSON M Ot R91.8 OTHER NONSPECIFIC ABNORMAL FINDING OF CASS 03/11/2016 LAURA FREEMAN DO M Ot J90 PLEURAL EFFUSION, 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 03/11/2016 LAURA FREEMAN DO M Ot K76.9 LIVER DISEASE, UNSPECIFIED 03/11/2016 LAURA FREEMAN DO M Ot N63 UNSPECIFIED LUMP IN BREAST 03/11/2016 LAURA FREEMAN DO M Ot R22.2 LOCALIZED SWELLING, MASS AND LUMP, TRUNK 03/11/2016 LAURA FREEMAN DO M Ot R91.8 OTHER NONSPECIFIC ABNORMAL FINDING OF CASS 11/09/2016 ROMEL BARRETT Ot I10 ESSENTIAL (PRIMARY) HYPERTENSION 11/09/2016 ROMEL BARRETT Ot J90 PLEURAL EFFUSION, 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 11/09/2016 ROMEL BARRETT Ot S00.81XA ABRASION OF OTHER PART OF HEAD, INITIAL 11/09/2016 ROMEL BARRETT Ot S09.90XA UNSPECIFIED INJURY OF HEAD, INITIAL ENCO 11/09/2016 ROMEL BARRETT Ot W01.0XXA FALL SAME LEV FROM SLIP/TRIP W/O STRIKE 11/09/2016 ROMEL BARRETT Ot Z85.3 PERSONAL HISTORY OF MALIGNANT NEOPLASM O 11/09/2016 ROMEL BARRETT Ot Z86.011 PERSONAL HISTORY OF BENIGN NEOPLASM OF T 11/09/2016 ROMEL BARRETT Ot Z86.39 PERSONAL HISTORY OF ENDO, NUTRITIONAL AN 11/09/2016 ROMEL BARRETT Ot Z86.79 PERSONAL HISTORY OF OTHER DISEASES OF TH 11/09/2016 ROMEL BARRETT Ot Z87.19 PERSONAL HISTORY OF OTHER DISEASES OF TH 11/09/2016 ROMEL BARRETT Ot Z87.39 PERSONAL HISTORY OF DISEASES OF THE MS S Procedures Results Test Result Range Complete blood count (CBC) with automated white blood cell (WBC) differential - 11/07/16 19:01 Blood leukocytes automated count (number/volume) 4.6 10*3/ uL 4.3-11.0 Blood erythrocytes automated count (number/volume) 4.78 10*6 /uL 4.35-5.85 Venous blood hemoglobin measurement (mass/volume) 14.6 g/dL 11.5-16.0 Blood hematocrit (volume fraction) 43 % 35-52 Automated erythrocyte mean corpuscular volume 90 [foz_us] 80-99 Automated erythrocyte mean corpuscular hemoglobin (mass per erythrocyte) 31 pg 25-34 Automated erythrocyte mean corpuscular hemoglobin concentration measurement ( mass/volume) 34 g/dL 32-36 Automated erythrocyte distribution width ratio 12.8 % 10.0-14.5 Automated blood platelet count (count/volume) 152 10*3/uL 130-400 Automated blood platelet mean volume measurement 9.7 [foz_us ] 7.4-10.4 Automated blood neutrophils/100 leukocytes 58 % 42-75 Automated blood lymphocytes/100 leukocytes 28 % 12-44 Blood monocytes/100 leukocytes 10 % 0-12 Automated blood eosinophils/100 leukocytes 3 % 0-10 Automated blood basophils/100 leukocytes 1 % 0-10 Blood neutrophils automated count (number/volume) 2.7 10*3 1.8-7.8 Blood lymphocytes automated count (number/volume) 1.3 10*3 1.0-4.0 Blood monocytes automated count (number/volume) 0.5 10*3 0.0-1.0 Automated eosinophil count 0.1 10*3/uL 0.0-0.3 Automated blood basophil count (count/volume) 0.0 10*3/uL 0.0-0.1 Comprehensive metabolic panel - 11/07/16 19:01 Serum or plasma sodium measurement (moles/volume) 138 mmol/ L 135-145 Serum or plasma potassium measurement (moles/volume) 4.6 mmol/L 3.6-5.0 Serum or plasma chloride measurement (moles/volume) 104 mmol /L 98-107 Carbon dioxide 23 mmol/L 21-32 Serum or plasma anion gap determination (moles/volume) 11 mmol/L 5-14 Serum or plasma urea nitrogen measurement (mass/volume) 30 mg/dL 7-18 Serum or plasma creatinine measurement (mass/volume) 0.81 mg /dL 0.60-1.30 Serum or plasma urea nitrogen/creatinine mass ratio 37 NRG Serum or plasma creatinine measurement with calculation of estimated glomerular filtration rate > NRG Serum or plasma glucose measurement (mass/volume) 93 mg/dL 70-105 Serum or plasma calcium measurement (mass/volume) 9.8 mg/dL 8.5-10.1 Serum or plasma total bilirubin measurement (mass/volume) 0.9 mg/dL 0.1-1.0 Serum or plasma alkaline phosphatase measurement (enzymatic activity/volume) 61 U/L 40-136 Serum or plasma aspartate aminotransferase measurement (enzymatic activity/ volume) 24 U/L 5-34 Serum or plasma alanine aminotransferase measurement (enzymatic activity/volume ) 15 U/L 0-55 Serum or plasma protein measurement (mass/volume) 7.7 g/dL 6.4-8.2 Serum or plasma albumin measurement (mass/volume) 4.0 g/dL 3.2-4.5 [id number] - 11/09/16 15:51 Serum or plasma urea nitrogen measurement (mass/volume) 28 mg/dL 7-18 Serum or plasma creatinine measurement (mass/volume) 0.87 mg /dL 0.60-1.30 Serum or plasma urea nitrogen/creatinine mass ratio 32 NRG Serum or plasma creatinine measurement with calculation of estimated glomerular filtration rate > NRG Complete blood count (CBC) with automated white blood cell (WBC) differential - 11/10/16 03:42 Blood leukocytes automated count (number/volume) 4.0 10*3/ uL 4.3-11.0 Blood erythrocytes automated count (number/volume) 4.31 10*6 /uL 4.35-5.85 Venous blood hemoglobin measurement (mass/volume) 13.0 g/dL 11.5-16.0 Blood hematocrit (volume fraction) 39 % 35-52 Automated erythrocyte mean corpuscular volume 90 [foz_us] 80-99 Automated erythrocyte mean corpuscular hemoglobin (mass per erythrocyte) 30 pg 25-34 Automated erythrocyte mean corpuscular hemoglobin concentration measurement ( mass/volume) 34 g/dL 32-36 Automated erythrocyte distribution width ratio 12.7 % 10.0-14.5 Automated blood platelet count (count/volume) 144 10*3/uL 130-400 Automated blood platelet mean volume measurement 10.3 [foz_ us] 7.4-10.4 Automated blood neutrophils/100 leukocytes 49 % 42-75 Automated blood lymphocytes/100 leukocytes 34 % 12-44 Blood monocytes/100 leukocytes 12 % 0-12 Automated blood eosinophils/100 leukocytes 4 % 0-10 Automated blood basophils/100 leukocytes 1 % 0-10 Blood neutrophils automated count (number/volume) 2.0 10*3 1.8-7.8 Blood lymphocytes automated count (number/volume) 1.3 10*3 1.0-4.0 Blood monocytes automated count (number/volume) 0.5 10*3 0.0-1.0 Automated eosinophil count 0.1 10*3/uL 0.0-0.3 Automated blood basophil count (count/volume) 0.1 10*3/uL 0.0-0.1 Whole blood basic metabolic panel - 11/10/16 03:42 Serum or plasma sodium measurement (moles/volume) 137 mmol/ L 135-145 Serum or plasma potassium measurement (moles/volume) 3.8 mmol/L 3.6-5.0 Serum or plasma chloride measurement (moles/volume) 105 mmol /L 98-107 Carbon dioxide 22 mmol/L 21-32 Serum or plasma anion gap determination (moles/volume) 10 mmol/L 5-14 Serum or plasma urea nitrogen measurement (mass/volume) 24 mg/dL 7-18 Serum or plasma creatinine measurement (mass/volume) 0.70 mg /dL 0.60-1.30 Serum or plasma urea nitrogen/creatinine mass ratio 34 NRG Serum or plasma creatinine measurement with calculation of estimated glomerular filtration rate > NRG Serum or plasma glucose measurement (mass/volume) 101 mg/dL 70-105 Serum or plasma calcium measurement (mass/volume) 8.9 mg/dL 8.5-10.1 Serum or plasma phosphate measurement (mass/volume) - 11/10/16 03:42 Serum or plasma phosphate measurement (mass/volume) 3.7 mg/ dL 2.3-4.7 Magnesium - 11/10/16 03:42 Magnesium 2.1 mg/dL 1.8-2.4 Encounters ACCT No. Visit Date/Time Discharge Status Pt. Type Provider Facility Loc./Unit Complaint [id number] 11/09/2016 14:50:00 2016 09:06:00 DIS Inpatient LAURA FREEMAN DO [facility] ICU Z98.890 [id number] 11/07/2016 16:37:00 2016 21:02:00 DIS Outpatient ROMEL BARRETT [facility] ER FALL/HEAD PAIN [id number] 09/01/2014 17:15:00 2014 19:26:00 DIS Emergency JEREMIAH MIR, YOANDY Velez [facility] ER FEVER,COUGH [id number] 02/12/2016 14:26:00 ACT Outpatient LAURA FREEMAN DO [facility] RAD J90,R06.00 [id number] 02/05/2016 08:51:00 ACT Outpatient LAURA FREEMAN DO [facility] CARD DYSPNEA AND RESPIRATORY ABNORMALITIES [id number] 01/19/2016 07:02:00 ACT Outpatient ALMA MIR, IVELISSE Partida [facility] RAD SOB [id number] 02/19/2011 10:14:00 Document Registration
== END 2016-11-10 08:07 | disposition hospice, home (50) ==
LOC: RAD 11:38 → ICU 14:50 → UNDOADMIN 14:50 → ICU 14:50 → ENPENDDIS 11-10 08:05 → UNDODISIN 11-10 09:06
PROVIDERS: ADMIT Family Medicine; ATTEND Family Medicine
DX: C79.51 Secondary malignant neoplasm of bone; C50.911 Malignant neoplasm of unspecified site of right female breast; Z66 Do not resuscitate; J94.8 Other specified pleural conditions; C78.02 Secondary malignant neoplasm of left lung; J95.811 Postprocedural pneumothorax; I10 Essential (primary) hypertension; C50.912 Malignant neoplasm of unspecified site of left female breast
CPT/HCPCS: 36415; 71010; 71020; 71260; 80048; 82565; 83735; 84100; 84520; 85025; 88112; 88305; 94664; 99211; G0378

== ENCOUNTER → 2016-11-15 | Outpatient (CLI) | payer MEDICARE ==
--- NOTE | 2016-11-15 17:58 | Diagnostic Imaging Report ---
PA view of the chest. INDICATION: Follow-up hydropneumothorax. COMPARISON: 11/10/2016 and 11/09/2016 exam. FINDINGS: There is still a hydropneumothorax seen with more fluid and less amount of air with the fluid level at the mid thoracic level on the right side. There is about one-third of the right hemothorax filled with air. There is however no significant mass effect and the findings are likely related to trapped lung. The right lung demonstrates nodular density suggestive of metastasis. The heart size is normal. IMPRESSION: Hydropneumothorax on the right side demonstrates larger amount of fluid with no significant change in the overall mass effect and the aerated portion of the right upper lobe suggestive of a trapped right lung. Dictated by: Dictated on workstation # [id number]
== END ==
LOC: RAD 15:11
PROVIDERS: ATTEND Family Medicine
DX: J93.83 Other pneumothorax (principal)
CPT/HCPCS: 71010

== ENCOUNTER → 2017-02-03 | Outpatient (CLI) | payer MEDICARE ==
--- NOTE | 2017-02-03 13:37 | Diagnostic Imaging Report ---
PA and lateral views of the chest. INDICATION: Pleural effusion. COMPARISON: 11/15/16. FINDINGS: There is a large right pleural effusion with opacification of the right mid and lower lung zones obscuring and limiting evaluation of the lung in this location. The left lung demonstrate no focal consolidation. There is background chronic appearing interstitial thickening seen. The right cardiac border is obscured with overall cardiac size suggested to be near the upper limits of normal. No pneumothorax. IMPRESSION: Large right pleural effusion. The mid and lower right lung zones are obscured by the effusion. Dictated by: Dictated on workstation # [id number]
== END ==
LOC: RAD 11:45
PROVIDERS: ATTEND Nurse Practitioner Family
DX: J90 Pleural effusion, not elsewhere classified (principal)
CPT/HCPCS: 71020